=== PATIENT | female | born 1955 | race African-American/Black ===

== ENCOUNTER 2017-06-28 07:22 | Emergency (ER) | payer OTHER ==
[~2017-06-28] VITALS: Ht 154.9 cm; Wt 54.1 kg
[~2017-06-28 07:22] MED LIST: ACYC200C PO; DIPH50CA35 PO; FLUO-191 PO; HYDR25TA PO; PROM25 PO; QUET100T PO; RISP.5 PO; TRAM50TA4 PO; VENL-53 PO
[2017-06-28] MEDS ORDERED: LISI-660 PO (07:34)
[2017-06-28] MEDS ORDERED: ARIP5TAB8 PO (07:34)
[2017-06-28] MEDS ORDERED: HYDROCODONE/ACETAMINOPHEN 5-325 MG TABLET PO ONE (11:00)
[2017-06-28 11:05] VITALS: BP 125/53
== END 2017-06-28 11:10 | disposition home or self-care (01) ==
LOC: EMS 07:24
DX: S20.211A Contusion of right front wall of thorax, initial encounter (principal); I10 Essential (primary) hypertension; F41.9 Anxiety disorder, unspecified; F32.9 Major depressive disorder, single episode, unspecified; F17.210 Nicotine dependence, cigarettes, uncomplicated; F19.90 Other psychoactive substance use, unspecified, uncomplicated; Y04.2XXA Assault by strike against or bumped into by another person, initial encounter; Y93.89 Activity, other specified; Y92.89 Other specified places as the place of occurrence of the external cause; Y99.8 Other external cause status
CPT/HCPCS: 71046; 99284; 99406